=== PATIENT | male | born 1960 | race Asian ===

== ENCOUNTER 2023-08-21 07:04 | Day surgery (SDC) | payer OTHER ==
[~2023-08-21] VITALS: Ht 167.6 cm; Wt 79.4 kg
[2023-08-21] MEDS ORDERED: fentaNYL citrate 0.05 MG/ML VIAL ONE (07:43)
[2023-08-21] MEDS: fentaNYL citrate 0.05 MG/ML VIAL IVP ONE (07:52)
[2023-08-21] MEDS: LIDOCAINE 2% 100 MG/5 ML UJET TP ONE (07:57)
== END 2023-08-21 08:47 | disposition home or self-care (01) ==
LOC: MMU 07:04 → MDS 07:04
PROVIDERS: ATTEND Internal Medicine Gastroenterology
DX: Z12.11 Encounter for screening for malignant neoplasm of colon (principal); D12.0 Benign neoplasm of cecum; I10 Essential (primary) hypertension; Z79.899 Other long term (current) drug therapy; Z98.890 Other specified postprocedural states
CPT/HCPCS: 45385; J3010